=== PATIENT | male | born 1985 | race American Indian/Alaskan Native ===

== ENCOUNTER 2019-04-02 13:09 | Emergency (ER) | payer SELFPAY ==
[2019-04-02 15:33] LABS: Bacteria,Urine 2+ /HPF (Negative); Bilirubin,Urine NEG (Negative); Blood,Urine NEG (Negative); Color,Urine Yellow (Yellow); Mucus,Urine 3+ /HPF; Protein,Urine <15 mg/dL mg/dL (Negative); RBC,Urine < 1.0 /HPF (0.0-6.0); Urobilinogen,Urine < 2.0 mg/dL (<2.0)
[2019-04-02 15:53] LABS: Hematocrit 48.7 % (35.5-45.6); Hemoglobin 16.6 gm/dl (11.8-15.2); Mean Corpuscular HGB Conc 34 % (32-34); Mean Corpuscular Volume 89 fl (84-94); Platelet Count 266 K/mm3 (140-440); Red Blood Count 5.47 M/mm3 (3.65-5.03); Red Cell Distribution Width 12.9 % (13.2-15.2)
[2019-04-02 16:01] LABS: Alanine Aminotransferase 93 units/L (7-56); Albumin 5.2 g/dL (3.9-5); BUN/Creatinine Ratio 14; Blood Urea Nitrogen 11 mg/dL (9-20); Calcium 10.3 mg/dL (8.4-10.2); Hemolysis Index 12
[2019-04-02] MEDS ORDERED: KETOROLAC 30 MG/1 ML INJ IM ONE (18:32)
[2019-04-02] MEDS ORDERED: KETOROLAC 30 MG/1 ML INJ ONE (18:34)
--- NOTE | 2019-04-02 18:54 | Emergency Department Report ---
ED Abdominal Pain HPI - General Chief Complaint: Abdominal Pain Stated Complaint: RT SIDE PAIN Time Seen by Provider: 04/02/19 18:11 Source: patient Mode of arrival: Ambulatory Limitations: No Limitations - History of Present Illness Initial Comments: 34-year-old -[place] male presents to the emergency room complaining of right side abdominal pain and right-sided flank pain x1 week. Patient reports the pain is worse while trying to sleep. Patient denies any fever chills no nausea no vomiting. Patient denies any hematuria but does report a history of penile discharge. Patient reports he has taken Advil and ibuprofen which helps some. Patient reports his pain to 8 out of 10. Patient reports a past surgical history of gallbladder stones removed. MD Complaint: flank pain Location: RLQ, R flank Severity scale (0 -10): 8 Improves With: nothing Worsens With: rest Associated Symptoms: denies: nausea, vomiting, diarrhea, chills, constipation, dysuria, hematuria - Related Data Previous Rx's Medication Instructions Recorded Last Taken Type Hydrocodone Bit/Acetaminophen 1 each PO Q6H PRN #20 tablet 11/08/12 Unknown Rx [Lortab 10-500 mg] Promethazine [Phenergan] 25 mg PO Q6H PRN #12 tablet 11/08/12 Unknown Rx Allergies Allergy/AdvReac Type Severity Reaction Status Date / Time No Known Allergies Allergy Unverified 11/08/12 02:32 ED Review of Systems ROS: Stated complaint: RT SIDE PAIN Other details as noted in HPI ED Past Medical Hx - Past Medical History Previous Medical History?: Yes Additional medical history: gall stones - Social History Smoking Status: Never Smoker Substance Use Type: None - Medications Home Medications: Home Medications Medication Instructions Recorded Confirmed Last Taken Type Hydrocodone Bit/Acetaminophen 1 each PO Q6H PRN #20 tablet 11/08/12 Unknown Rx [Lortab 10-500 mg] Promethazine [Phenergan] 25 mg PO Q6H PRN #12 tablet 11/08/12 Unknown Rx ED Physical Exam - General Limitations: No Limitations General appearance: alert, in no apparent distress - Head Head exam: Present: atraumatic, normocephalic - Eye Eye exam: Present: normal appearance - ENT ENT exam: Present: mucous membranes moist - Neck Neck exam: Present: normal inspection, full ROM - Respiratory Respiratory exam: Present: normal lung sounds bilaterally. Absent: respiratory distress - Cardiovascular Cardiovascular Exam: Present: regular rate, normal rhythm. Absent: systolic murmur, diastolic murmur, rubs, gallop - GI/Abdominal GI/Abdominal exam: Present: soft, normal bowel sounds - Extremities Exam Extremities exam: Present: normal inspection, full ROM - Back Exam Back exam: Present: full ROM. Absent: CVA tenderness (R), CVA tenderness (L) - Neurological Exam Neurological exam: Present: alert, oriented X3, normal gait - Psychiatric Psychiatric exam: Present: normal affect, normal mood - Skin Skin exam: Present: warm, dry, intact, normal color. Absent: rash ED Course Vital Signs 04/02/19 13:14 Temperature 98.5 F Pulse Rate 91 H Respiratory 18 Rate Blood Pressure 140/86 O2 Sat by Pulse 99 Oximetry ED Medical Decision Making - Lab Data Result diagrams: 04/02/19 15:23 04/02/19 15:23 - Radiology Data Radiology results: report reviewed Patient: KOSTA PRYOR MR#: [id number] : 1985 Acct:[id number] Age/Sex: 34 / M ADM Date: 04/02/19 Loc: ED Attending Dr: Ordering Physician: ENA GOMEZ Date of Service: 04/02/19 Procedure(s): CT abdomen pelvis w con Accession Number(s): [id number] cc: ENA GOMEZ CT ABDOMEN AND PELVIS WITH CONTRAST INDICATION / CLINICAL INFORMATION: right side abd pain. TECHNIQUE: Axial CT images were obtained through the abdomen and pelvis after 100 cc Omn ipaque 300 milligrams percent IV contrast. All CT scans at this location are performed using CT dose reduction for ALARA by means of automated exposure control. COMPARISON: None available. FINDINGS: LOWER CHEST: No significant abnormality. LIVER: No significant abnormality. GALLBLADDER: Previous cholecystectomy BILE DUCTS: No significant abnormality. PANCREAS: No significant abnormality. SPLEEN: No significant abnormality. ADRENALS: No significant abnormality. RIGHT KIDNEY and URETER: No significant abnormality. LEFT KIDNEY and URETER: No significant abnormality. STOMACH and SMALL BOWEL: No significant abnormality. COLON: No significant abnormality. APPENDIX: No significant abnormality. PERITONEUM: No free fluid. No free air. No fluid collection. LYMPH NODES: No significant adenopathy. AORTA and ARTERIES: No significant abnormality. IVC and VEINS: No significant abnormality. URINARY BLADDER: No significant abnormality. REPRODUCTIVE ORGANS: No significant abnormality. ADDITIONAL FINDINGS: None. SKELETAL SYSTEM: No significant abnormality. IMPRESSION: 1. No significant abnormality. Signer Name: Gera Jimenez MD Signed: 04/02/2019 7:08 PM Workstation Name: [id number] Transcribed By: PREMA Dictated By: Gera Jimenez MD Electronically Authenticated By: Gera Jimenez MD Signed Date/Time: 04/02/191907 DD/ 01 TD/TT: - Medical Decision Making 34-year-old -[place] male presents to the emergency room complaining of right side abdominal pain and right-sided flank pain x1 week. Patient reports the pain is worse while trying to sleep. Patient denies any fever chills no nausea no vomiting. Patient denies any hematuria but does report a history of penile discharge. Patient reports he has taken Advil and ibuprofen which helps some. Patient reports his pain to 8 out of 10. Patient reports a past surgical history of gallbladder stones removed. Critical care attestation.: If time is entered above; I have spent that time in minutes in the direct care of this critically ill patient, excluding procedure time. ED Disposition Clinical Impression: Acute right flank pain Disposition: DC-01 TO HOME OR SELFCARE Is pt being admited?: No Does the pt Need Aspirin: No Condition: Stable Instructions: Flank Pain (ED) Additional Instructions: CT scans negative for any acute findings. Labs are stable. You can take ibuprofen or Tylenol for pain management. Follow-up with your primary care provider I have listed 1 below for your convenience Referrals: TONJA GARNICA MD [Primary Care Provider] - 3-5 Days KEVIN DE LA PAZ MD [Staff Physician] - 3-5 Days Forms: Work/School Release Form(ED)
--- NOTE | 2019-04-02 19:12 | Cat Scan Report ---
CT ABDOMEN AND PELVIS WITH CONTRAST INDICATION / CLINICAL INFORMATION: right side abd pain. TECHNIQUE: Axial CT images were obtained through the abdomen and pelvis after 100 cc Omnipaque 300 milligrams pe rcent IV contrast. All CT scans at this location are performed using CT dose reduction for ALARA by means of automated exposure control. COMPARISON: None available. FINDINGS: LOWER CHEST: No significant abnormality. LIVER: No significant abnormality. GALLBLADDER: Previous cholecystectomy BILE DUCTS: No significant abnormality. PANCREAS: No significant abnormality. SPLEEN: No significant abnormality. ADRENALS: No significant abnormality. RIGHT KIDNEY and URETER: No significant abnormality. LEFT KIDNEY and URETER: No significant abnormality. STOMACH and SMALL BOWEL: No significant abnormality. COLON: No significant abnormality. APPENDIX: No significant abnormality. PERITONEUM: No free fluid. No free air. No fluid collection. LYMPH NODES: No significant adenopathy. AORTA and ARTERIES: No significant abnormality. IVC and VEINS: No significant abnormality. URINARY BLADDER: No significant abnormality. REPRODUCTIVE ORGANS: No significant abnormality. ADDITIONAL FINDINGS: None. SKELETAL SYSTEM: No significant abnormality. IMPRESSION: 1. No significant abnormality. Signer Name: Gera Jimenez MD Signed: 04/02/2019 7:08 PM Workstation Name: [id number]
[2019-04-02 20:02] VITALS: BP 118/75
== END 2019-04-02 19:56 | disposition home or self-care (01) ==
LOC: ED 13:09
DX: R10.31 Right lower quadrant pain (principal); Z79.899 Other long term (current) drug therapy
CPT/HCPCS: 36415; 74177; 80053; 81001; 85025; 96372; 99284; J1885; Q9967

== ENCOUNTER 2019-12-17 13:08 | Emergency (ER) | payer SELFPAY ==
[2019-12-17] MEDS ORDERED: DIPHtheria,PERTUSSIS(ACELL),TETANUS VACCINE/PF 0.5 ML VIAL IM ONE (13:12)
[2019-12-17 13:13] VITALS: BP 127/96
--- NOTE | 2019-12-17 13:13 | Event Note ---
ED Screening Note Date of service: 12/17/19 Time: 13:13 ED Screening Note: Complains of left foot pain after dropping a brick on his foot yesterday Has small open cut This initial assessment/diagnostic orders/clinical plan/treatment(s) is/are subject to change based on patients health status, clinical progression and re- assessment by fellow clinical providers in the ED. Further treatment and workup at subsequent clinical providers discretion. Patient/guardian urged not to elope from the ED as their condition may be serious if not clinically assessed and managed. Initial orders include: X-ray Tetanus vaccine
--- NOTE | 2019-12-17 13:44 | XRay Report ---
XR foot 3+V LT INDICATION / CLINICAL INFORMATION: Pain. COMPARISON: None available. FINDINGS: No acute fracture. Normal alignment. Joint spaces are preserved. There is increased first metatars al-phalangeal angle consistent with hallux valgus. No destructive osseous lesion or suspicious perio steal reaction. Impression: 1.No acute abnormality. 2. Hallux valgus. Signer Name: Dex Toledo MD Signed: 12/17/2019 1:40 PM Workstation Name: [id number]
--- NOTE | 2019-12-17 13:55 | Emergency Department Report ---
ED General Adult HPI - General Chief complaint: Extremity Injury, Lower Stated complaint: LT FOOT BRUSED Time Seen by Provider: 12/17/19 13:11 Source: patient Mode of arrival: Ambulatory Limitations: No Limitations - History of Present Illness Initial comments: 34-year-old -Irish male patient presents with complaints of left foot pain after dropping a brick on his foot yesterday. He denies any numbness/tingling/weakness in his foot or difficulty with movement. Pain worsens with ambulation. He rates his pain as a 8/10 in severity. Patient is unsure of last tetanus vaccination. - Related Data Previous Rx's Medication Instructions Recorded Last Taken Type Hydrocodone Bit/Acetaminophen 1 each PO Q6H PRN #20 tablet 11/08/12 Unknown Rx [Lortab 10-500 mg] Promethazine [Phenergan] 25 mg PO Q6H PRN #12 tablet 11/08/12 Unknown Rx Diclofenac Sodium 50 mg PO TID PRN #20 tablet. 12/17/19 Unknown Rx Allergies Allergy/AdvReac Type Severity Reaction Status Date / Time No Known Allergies Allergy Verified 12/17/19 13:10 ED Review of Systems ROS: Stated complaint: LT FOOT BRUSED Other details as noted in HPI Constitutional: denies: chills, fever Musculoskeletal: arthralgia Skin: denies: change in color Neurological: denies: numbness, paresthesias ED Past Medical Hx - Past Medical History Previous Medical History?: No Additional medical history: gall stones - Surgical History Past Surgical History?: No - Social History Smoking Status: Current Every Day Smoker Substance Use Type: None - Medications Home Medications: Home Medications Medication Instructions Recorded Confirmed Last Taken Type Hydrocodone Bit/Acetaminophen 1 each PO Q6H PRN #20 tablet 11/08/12 Unknown Rx [Lortab 10-500 mg] Promethazine [Phenergan] 25 mg PO Q6H PRN #12 tablet 11/08/12 Unknown Rx Diclofenac Sodium 50 mg PO TID PRN #20 tablet. 12/17/19 Unknown Rx ED Physical Exam - General Limitations: No Limitations General appearance: alert, in no apparent distress - Head Head exam: Present: atraumatic, normocephalic - Eye Eye exam: Present: normal appearance. Absent: scleral icterus - Neck Neck exam: Present: normal inspection - Respiratory Respiratory exam: Absent: respiratory distress - Cardiovascular Cardiovascular Exam: Present: regular rate - Expanded Lower Extremity Exam Left Ankle exam: Present: full ROM Foot/Toe exam: Present: tenderness (Tenderness to palpation noted across the first, second, and third metatarsals without swelling or obvious deformity), laceration (Small superficial healing laceration noted atop the second metatarsal without surrounding erythema or purulent drainage noted). Absent: swelling, deformity, dislocation Neuro vascular tendon exam: Absent: no vascular compromise, pulse deficit, motor deficit, sensory deficit - Back Exam Back exam: Present: full ROM - Neurological Exam Neurological exam: Present: alert, oriented X3 - Psychiatric Psychiatric exam: Present: normal affect, normal mood - Skin Skin exam: Present: warm, dry, normal color. Absent: rash ED Course Vital Signs 12/17/19 13:10 Temperature 98 F Pulse Rate 109 H Respiratory 20 Rate Blood Pressure 127/96 O2 Sat by Pulse 95 Oximetry ED Medical Decision Making - Radiology Data Radiology results: report reviewed XR foot 3+V LT INDICATION / CLINICAL INFORMATION: Pain. COMPARISON: None available. FINDINGS: No acute fracture. Normal alignment. Joint spaces are preserved. There is increased first metatarsal-phalangeal angle consistent with hallux valgus. No destructive osseous lesion or suspicious periosteal reaction. Impression: 1.No acute abnormality. 2. Hallux valgus. - Medical Decision Making 34-year-old -Irish male patient presents with complaints of left foot pain after dropping a brick on his foot yesterday. He denies any numbness/tingling/weakness in his foot or difficulty with movement. Pain worsens with ambulation. He rates his pain as a 8/10 in severity. Patient is unsure of last tetanus vaccination. X-rays negative for any bony abnormalities. Will treat for foot sprain. Tetanus vaccine updated. Wound dressed with bacitracin and wound dressing. Recommend topical Neosporin. Rice method of treatment and strict return precautions were discussed in detail with patient who verbalized understanding. Orthopedic referral given for as needed. Critical care attestation.: If time is entered above; I have spent that time in minutes in the direct care of this critically ill patient, excluding procedure time. ED Disposition Clinical Impression: Crush injury of left foot Qualifiers: Encounter type: initial encounter Qualified Code(s): S97.82XA - Crushing injury of left foot, initial encounter Disposition: DC-01 TO HOME OR SELFCARE Is pt being admited?: No Condition: Stable Instructions: Foot Sprain, Crush Injury of the Foot Prescriptions: Diclofenac Sodium 50 mg PO TID PRN #20 tablet.dr BOBBY Reason: pain Referrals: TOM VASQUEZ MD [Staff Physician] - as needed
[2019-12-17] MEDS ORDERED: BACITRACIN ZINC OINT 28.4 GM TP STA (14:03)
[2019-12-17] MEDS ORDERED: NEOMY 3.5 MG/BACIT 400 UNITS/POLY B 5000 UNITS/GM OINT PACKET TP STA (14:15)
[2019-12-17] MEDS ORDERED: NEOMY 3.5 MG/BACIT 400 UNITS/POLY B 5000 UNITS/GM OINT PACKET TP ONE (14:15)
== END 2019-12-17 14:32 | disposition home or self-care (01) ==
LOC: ED 13:08
DX: S97.82XA Crushing injury of left foot, initial encounter (principal); F17.200 Nicotine dependence, unspecified, uncomplicated; W20.8XXA Other cause of strike by thrown, projected or falling object, initial encounter; Y93.89 Activity, other specified; Y92.89 Other specified places as the place of occurrence of the external cause; Y99.8 Other external cause status
CPT/HCPCS: 73630; 90471; 90715; 99284; A6250